=== PATIENT | female | born 1945 | race African-American/Black ===

== ENCOUNTER 2017-09-02 07:00 | Inpatient (IN) ==
[2017-09-02] MEDS ORDERED: ANCEF 1 GRAM IV PREMIX* 2 G/100 ML BAG IV ONE (07:20)
[2017-09-02] MEDS ORDERED: D5 LR 1000 ML 1,000 ML IV ONE (07:20)
[2017-09-02 07:56] VITALS: BMI 36.0
[2017-09-02] MEDS ORDERED: D5 LR 1000 ML 1,000 ML IV SCH (08:00)
[2017-09-02] MEDS: HYDROGEN PEROXIDE 3% ONE ×2 (08:06→12:35)
[2017-09-02] MEDS ORDERED: BACTROBAN TOPICAL OINT ONE ×2 (08:06→13:42)
[2017-09-02] MEDS ORDERED: FENTANYL INJ 250 mcg ONE (08:30)
[2017-09-02] MEDS ORDERED: VERSED ONE (09:03)
[2017-09-02] MEDS ORDERED: NORCURON INJ 10 MG VIAL ONE (09:03)
[2017-09-02] MEDS ORDERED: SUPRANE IN ONE (09:03)
[2017-09-02] MEDS ORDERED: ROBINUL ONE (09:03)
[2017-09-02] MEDS ORDERED: QUELICIN (OR ANECTINE) ONE (09:03)
[2017-09-02] MEDS ORDERED: DIPRIVAN VIAL ONE (09:03)
[2017-09-02] MEDS ORDERED: NEOSTIGMINE INJ ONE (09:03)
[2017-09-02] MEDS ORDERED: XYLOCAINE 2 % (PLAIN) ONE (09:03)
[2017-09-02] MEDS ORDERED: ZOFRAN INJ 4 MG VIAL ONE (09:03)
[2017-09-02] MEDS ORDERED: DILAUDID INJ ONE (10:00)
[2017-09-02] MEDS ORDERED: FENTANYL INJ 100 mcg ONE (10:01)
[2017-09-02] MEDS ORDERED: LR 1000 ML IV 1,000 ML IV ONE (10:29)
[2017-09-02] MEDS ORDERED: BENADRYL INJ 50 MG VIAL IVP PRN (12:56)
[2017-09-02] MEDS ORDERED: REGLAN INJ 10 MG VIAL IVP PRN (12:56)
[2017-09-02] MEDS ORDERED: PHENERGAN INJ 25 MG IVP PRN (12:56)
[2017-09-02] MEDS ORDERED: ZOFRAN INJ 4 MG VIAL IVP PRN ×2 (12:56→21:52)
[2017-09-02] MEDS ORDERED: DILAUDID INJ IVP PRN (12:56)
[2017-09-02] MEDS ORDERED: MORPHINE SULFATE PCA 30 MG IV PRN (13:03)
[2017-09-02] MEDS ORDERED: NAROPIN 0.75% EPI ONE (13:04)
[2017-09-02] MEDS: D5 1/2 NS 1000 ML 1,000 ML IV SCH ×2 (14:13→21:10)
--- NOTE | 2017-09-02 16:31 | RAD ---
Indication: Postop Exam: Right knee series Technique: AP and lateral views Findings: There are ill-defined prosthetic devices in the femoral condyle and tibial plateau which ar e held in place with extensive methylmethacrylate and appear in good position. There are postop dominguez es are seen along the patella posteriorly and there is subcutaneous air and edema in the soft tissues anteriorly and extending into the joint space. There are skin clips anteriorly. Impression: Status post total right knee replacement with postop changes as above. Reported By:
[2017-09-02] MEDS: VANCOMYCIN HCL 1 GM VIAL 1 G in D5W 250 ML IV 250 ML IV SCH (20:17)
[2017-09-02] MEDS: LOVENOX INJ 30 MG SYR SC SCH (20:17)
[2017-09-03] MEDS: D5 1/2 NS 1000 ML 1,000 ML IV SCH ×3 (00:15→18:07)
[2017-09-03 06:43] LABS: BASOPHILS % (AUTO) 0.4 % (0.2-1.0); HEMATOCRIT 32.2 % (36.0-47.0); HEMOGLOBIN 10.7 g/dL (12.0-16.0); LYMPHOCYTES # (AUTO) 1.6 X10^3/uL (1.3-2.9); LYMPHOCYTES % (AUTO) 16.6 % (21.0-51.0); MEAN CORPUSCULAR HGB CONC 33.2 g/dL (33.0-35.0); MEAN CORPUSCULAR VOLUME 78.3 fL (80.0-100.0); MEAN PLATELET VOLUME 9.4 fL (7.4-11.0); MONOCYTES # (AUTO) 0.9 x10^3/uL (0.3-0.8); MONOCYTES % (AUTO) 9.4 % (0.0-13.0); NEUTROPHILS # (AUTO) 7.1 x10^3/uL (2.2-4.8); NEUTROPHILS % (AUTO) 73.6 % (42.0-75.0); PLATELET COUNT 225 X10^3/uL (150.0-450.0); RED BLOOD COUNT 4.11 X10^6/uL (3.5-5.4); RED CELL DISTRIBUTION WIDTH 13.9 % (11.6-16.5); WHITE BLOOD COUNT 9.7 X10^3/uL (3.6-10.0)
[2017-09-03 07:00] LABS: BLOOD UREA NITROGEN 11 mg/dL (7-18); CALCIUM 9.1 mg/dL (8.5-10.1); CARBON DIOXIDE 28.9 mmol/L (21-32); CHLORIDE 99 mmol/L (98-107); COR NA(FOR HYPERGLY) 138 mmol/L (136-145); CREATININE 0.91 mg/dL (0.55-1.02); SODIUM 136 mmol/L (136-145); eGFR NON BLACK RACES > 60 (>60)
[2017-09-03] MEDS ORDERED: K-LYTE EFFERVESCENT PO PRN (08:15)
[2017-09-03] MEDS ORDERED: K-RIDER 10 MEQ/NS 100 ML 10 MEQ/100 ML BAG IV PRN (08:15)
[2017-09-03] MEDS ORDERED: POTASSIUM CHL 40 MEQ/NS 0.45% 500 ML IV PRN (08:15)
[2017-09-03] MEDS ORDERED: POTASSIUM CHL 60 MEQ/NS 0.45% 500 ML IV PRN (08:15)
[2017-09-03] MEDS ORDERED: POTASSIUM CHLORIDE LIQ 20 MEQ UDC PO PRN (08:15)
[2017-09-03] MEDS: VANCOMYCIN HCL 1 GM VIAL 1 G in D5W 250 ML IV 250 ML IV SCH ×2 (09:46→22:01)
--- NOTE | 2017-09-03 09:56 | RAD ---
History: Shortness of breath Study: Portable AP chest Comparison: August 29 Findings: The lungs remain grossly clear with limited inspiration compared to the prior exam. The hea rt size is prominent with a tortuous descending aorta. There is no edema or effusion demonstrated. Impression: No evidence for acute cardiopulmonary disease Reported By:
[2017-09-03] MEDS ORDERED: PATIENT'S HOME MEDICATION (Albuterol Sulfate [Proair Hfa] 1 INH) IN PRN (11:11)
[2017-09-03] MEDS ORDERED: BENZONATATE 200 MG PO PRN (11:11)
[2017-09-03] MEDS ORDERED: TESSALON PERLES PO PRN (11:26)
[2017-09-03] MEDS ORDERED: PROVENTIL NEB TX 0.083% 2.5MG/ 3ML NEB PRN (11:27)
[2017-09-03] MEDS: LASIX IVP SCH ×2 (11:35→21:02)
[2017-09-03] MEDS: NORVASC TAB 10 MG PO SCH (11:36)
[2017-09-03] MEDS ORDERED: MORPHINE SULFATE INJ 2 MG INJ IVP PRN (13:21)
--- NOTE | 2017-09-03 16:44 | DR.UPDATE ---
H&P Update History and Physical Update: History and Physical reviewed and patient examined. Changes noted: NO Yes with the following:Agree with H&P from Dr Escalera. Will place picc line Procedures (ALL) - Central Line Placement PCM.CLCO: written consent Time out performed: Yes Patient placed pm monitor/pulse ox: Yes prep: mask, gown, gloves, other Centrial line prep: chlorhexidine scrub Local anesthsia used: lidocane 1% Ultrasound used for placement: Yes (right basilic id'd.) Central line lumen ininserted: double (5Fr power port. trimmed length 43cm with 0cm exposed) Post procedure: good blood return, all ports aspirated, flushed,capped, sterile dressing applied Post procedure xray: tip oc catheter in good position, no pneumothorax seen Patient tolerated procedure: Yes
[2017-09-03] MEDS ORDERED: MAGNESIUM SULFATE 1 GRAM/100 mL PREMIX 1 G/100 ML BAG IV ONE (20:00)
[2017-09-03] MEDS: COLACE CAP 100 MG PO SCH (21:02)
[2017-09-03] MEDS: LOVENOX INJ 30 MG SYR SC SCH (21:02)
[2017-09-03] MEDS: MILK OF MAGNESIA PO SCH (21:13)
[2017-09-04] MEDS: D5 1/2 NS 1000 ML 1,000 ML IV SCH ×3 (02:08→18:05)
[2017-09-04 05:15] LABS: BASOPHILS % (AUTO) 0.1 % (0.2-1.0); HEMATOCRIT 31.3 % (36.0-47.0); HEMOGLOBIN 10.2 g/dL (12.0-16.0); LYMPHOCYTES # (AUTO) 1.5 X10^3/uL (1.3-2.9); LYMPHOCYTES % (AUTO) 11.1 % (21.0-51.0); MEAN CORPUSCULAR HEMOGLOBIN 25.5 pg (27.0-34.0); MEAN CORPUSCULAR HGB CONC 32.6 g/dL (33.0-35.0); MEAN CORPUSCULAR VOLUME 78.2 fL (80.0-100.0); MONOCYTES # (AUTO) 1.6 x10^3/uL (0.3-0.8); MONOCYTES % (AUTO) 11.6 % (0.0-13.0); NEUTROPHILS # (AUTO) 10.5 x10^3/uL (2.2-4.8); NEUTROPHILS % (AUTO) 77.2 % (42.0-75.0); PLATELET COUNT 192 X10^3/uL (150.0-450.0); RED CELL DISTRIBUTION WIDTH 13.9 % (11.6-16.5); WHITE BLOOD COUNT 13.6 X10^3/uL (3.6-10.0)
[2017-09-04 05:27] LABS: BLOOD UREA NITROGEN 10 mg/dL (7-18); CALCIUM 9.3 mg/dL (8.5-10.1); CARBON DIOXIDE 28.9 mmol/L (21-32); CHLORIDE 98 mmol/L (98-107); COR NA(FOR HYPERGLY) 135 mmol/L (136-145); CREATININE 0.93 mg/dL (0.55-1.02); MAGNESIUM 1.7 mg/dL (1.7-2.9); SODIUM 134 mmol/L (136-145); eGFR NON BLACK RACES > 60 (>60)
[2017-09-04 05:55] LABS: HYPOCHROMASIA 1+; PLATELET MORPHOLOGY COMMENT NORMAL (NORMAL)
[2017-09-04] MEDS: PERCOCET TAB 5/325 MG PO PRN ×2 (07:09→12:20)
--- NOTE | 2017-09-04 08:23 | PCM.PROG ---
Progress Note - Progress Note for Day of Date: 09/03/17 - Subjective Subjective: IS DAY 1 STATUS POST RIGHT KNEE REVISION. TODAY, SHE IS ALERT AND ORIENTED, LYING IN BED ON MORNING ROUNDS. SHE IS NOTED WITH COMPLAINTS OF RIGHT KNEE PAIN AND SHORTNESS OF BREATH. ON EXAMINATION, HEART IS REGULAR IN RATE AND RHYTHM. BILATERAL LUNGS ARE NOTED WITH DIMINISHED LUNG SOUNDS THROUGHOUT. ABDOMEN IS ROUND, SOFT, AND NON-TENDER WITH NORMAL BOWEL SOUNDS NOTED IN ALL QUADRANTS. RIGHT KNEE IS NOTED WITH A SURGICAL DRESSING, DRY AND INTACT. NO SIGNS OR SX INFECTION NOTED TO SITE. HER VITALS THIS MORNING ARE 98.3-64-17-100%-185/78. LABS WERE OBTAINED. ABNORMAL LAB VALUES INCLUDE THE FOLLOWING: HGB 10.7, HCT 32.2, POTASSIUM 3.0, GLUCOSE 166, MAGNESIUM 1.5. TODAY , WE WILL ORDER A CHEST XRAY AND ADMINISTER LASIX 20MG IV BID. WE WILL REPLACE HER MAGNESIUM AND POTASSIUM WITH THE PROTOCOL. PHYSICAL THERAPY WILL CONTINUE TO WORK WITH PATIENT. OTHERWISE, WE WILL FOLLOW UP WITH AM LABS AND CONTINUE TO MONITOR PATIENT. - Past Medical Family Social History Past Med/Fam/Surg Hx: No changes since H&P Allergies: Allergies No Known Drug Allergies Allergy (Verified 09/02/17 07:29) - Review of Systems ROS: No change since H&P - Vital Signs and I&O's Vital Signs: Temperature 98.2 F Pulse Rate [Right Brachial] 75 Pulse Rate [Left Brachial] 78 Pulse Rate [Apical] 64 Pulse Rate 62 Respiratory Rate 18 Blood Pressure [Left Arm] 160/71 Blood Pressure [Right Arm] 141/67 Blood Pressure 158/69 O2 Sat by Pulse Oximetry 96 Intake and Output: Intake & Output 09/01/17 09/02/17 09/03/17 09/04/17 11:59 11:59 11:59 11:59 Intake Total 50 / 50 4187 / 4187 2910 / 2910 Output Total 970 / 970 4350 / 4350 Balance 50 / 50 3217 / 3217 -1440 / -1440 - Physical Exam Oriented: Normal Eyes: Normal Ear: Normal Nose: Normal Throat: Normal Respiratory: Generalized, Diminished Cardiovascular: Normal. negative: S3, S4, Murmur : Normal Auscultation: Bowel Sounds: Normal Palpation: Normal Tenderness: Normal Skin: Tender, Wound (SURGICAL WOUND RIGHT KNEE ) Musculoskeletal: Right, Knee, Tender Psychiatric: Normal Mood Description: Calm Affect: Normal Speech Pattern: Clear, Appropriate - Laboratory and Diagnostics Result Diagrams: 09/04/17 04:20 09/04/17 04:20 Labs: Laboratory WBC 13.6 X10^3/uL (3.6-10.0) H 09/04/17 04:20 RBC 4.00 X10^6/uL (3.5-5.4) 09/04/17 04:20 Hgb 10.2 g/dL (12.0-16.0) L 09/04/17 04:20 Hct 31.3 % (36.0-47.0) L 09/04/17 04:20 MCV 78.2 fL (80.0-100.0) L 09/04/17 04:20 MCH 25.5 pg (27.0-34.0) L 09/04/17 04:20 MCHC 32.6 g/dL (33.0-35.0) L 09/04/17 04:20 RDW 13.9 % (11.6-16.5) 09/04/17 04:20 Plt Count 192 X10^3/uL (150.0-450.0) 09/04/17 04:20 Plt Count Comment Adequate (ADEQUATE) 09/04/17 04:20 MPV 10.0 fL (7.4-11.0) 09/04/17 04:20 Neut % (Auto) 77.2 % (42.0-75.0) H 09/04/17 04:20 Lymph % (Auto) 11.1 % (21.0-51.0) L 09/04/17 04:20 [place] % (Auto) 11.6 % (0.0-13.0) 09/04/17 04:20 Eos % (Auto) 0.0 % (0.9-2.9) L 09/04/17 04:20 Baso % (Auto) 0.1 % (0.2-1.0) L 09/04/17 04:20 Neut # (Auto) 10.5 x10^3/uL (2.2-4.8) H 09/04/17 04:20 Lymph # (Auto) 1.5 X10^3/uL (1.3-2.9) 09/04/17 04:20 [place] # (Auto) 1.6 x10^3/uL (0.3-0.8) H 09/04/17 04:20 Eos # (Auto) 0.0 x10^3/uL (0.0-0.2) 09/04/17 04:20 Baso # (Auto) 0.0 X10^3/uL (0.0-0.1) 09/04/17 04:20 Absolute Nucleated RBC 0.0 /100WBC 09/04/17 04:20 Plt Morphology Comment Normal (NORMAL) 09/04/17 04:20 RBC Morphology Abnormal (NORMAL) A 09/04/17 04:20 Hypochromasia 1+ A 09/04/17 04:20 Sodium 134 mmol/L (136-145) L 09/04/17 04:20 Corrected Sodium 135 mmol/L (136-145) L 09/04/17 04:20 Potassium 3.5 mmol/L (3.5-5.1) 09/04/17 04:20 Chloride 98 mmol/L (98-107) 09/04/17 04:20 Carbon Dioxide 28.9 mmol/L (21-32) 09/04/17 04:20 BUN 10 mg/dL (7-18) 09/04/17 04:20 Creatinine 0.93 mg/dL (0.55-1.02) 09/04/17 04:20 Est GFR (MDRD) Af Amer > 60 (>60) 09/04/17 04:20 Est GFR (MDRD) Non-Af > 60 (>60) 09/04/17 04:20 Glucose 152 mg/dL (65-99) H 09/04/17 04:20 Calcium 9.3 mg/dL (8.5-10.1) 09/04/17 04:20 Magnesium 1.7 mg/dL (1.7-2.9) 09/04/17 04:20 Tissue Pathology To follow 09/02/17 12:50 - Plan (1) Status post revision of total replacement of right knee Status: Acute Plan: PHYSICAL THERAPY, WOUND CARE, PAIN MANAGEMENT, CONTINUE TO MONITOR (2) Shortness of breath Status: Acute Plan: LASIX 20MG IV BID, CHEST XRAY, SUPPLEMENTAL OXYGEN, CONTINUE TO MONITOR (3) Hypertension Status: Acute Qualifiers: Hypertension type: essential hypertension Qualified Code(s): I10 - Essential (primary) hypertension Plan: CONTINUE NORVASC, CONTINUE HCTZ, CONTINUE TO MONITOR
[2017-09-04] MEDS: HYDROCHLOROTHIAZIDE 25 MG TAB PO SCH (08:29)
[2017-09-04] MEDS: MILK OF MAGNESIA PO SCH ×2 (08:30→20:51)
[2017-09-04] MEDS: NORVASC TAB 10 MG PO SCH (08:30)
[2017-09-04] MEDS ORDERED: PHARMACY COMMENT IV SCH (08:45)
[2017-09-04 08:51] LABS: CREATININE 1.04 mg/dL (0.55-1.02); VANCOMYCIN,TROUGH 12.8 ug/mL (15-20)
[2017-09-04] MEDS: VANCOMYCIN HCL 1 GM VIAL 1 G in D5W 250 ML IV 250 ML IV SCH ×2 (09:27→20:52)
[2017-09-04] MEDS ORDERED: DULCOLAX SUPPOSITORY 10 MG RECTAL SCH (19:00)
[2017-09-04] MEDS: COLACE CAP 100 MG PO SCH (20:51)
[2017-09-04] MEDS: LOVENOX INJ 30 MG SYR SC SCH (20:52)
[2017-09-05] MEDS: D5 1/2 NS 1000 ML 1,000 ML IV SCH ×2 (01:41→10:38)
[2017-09-05 05:22] LABS: BASOPHILS % (AUTO) 0.1 % (0.2-1.0); EOSINOPHILS % (AUTO) 0.3 % (0.9-2.9); HEMOGLOBIN 9.6 g/dL (12.0-16.0); LYMPHOCYTES # (AUTO) 1.7 X10^3/uL (1.3-2.9); LYMPHOCYTES % (AUTO) 13.6 % (21.0-51.0); MEAN CORPUSCULAR HEMOGLOBIN 25.9 pg (27.0-34.0); MEAN CORPUSCULAR VOLUME 78.3 fL (80.0-100.0); MEAN PLATELET VOLUME 9.5 fL (7.4-11.0); MONOCYTES # (AUTO) 1.2 x10^3/uL (0.3-0.8); MONOCYTES % (AUTO) 9.4 % (0.0-13.0); NEUTROPHILS # (AUTO) 9.5 x10^3/uL (2.2-4.8); NEUTROPHILS % (AUTO) 76.6 % (42.0-75.0); PLATELET COUNT 200 X10^3/uL (150.0-450.0); RED CELL DISTRIBUTION WIDTH 13.9 % (11.6-16.5); WHITE BLOOD COUNT 12.4 X10^3/uL (3.6-10.0)
[2017-09-05 05:29] LABS: BLOOD UREA NITROGEN 14 mg/dL (7-18); CALCIUM 9.3 mg/dL (8.5-10.1); CARBON DIOXIDE 32.5 mmol/L (21-32); CHLORIDE 96 mmol/L (98-107); COR NA(FOR HYPERGLY) 135 mmol/L (136-145); CREATININE 0.98 mg/dL (0.55-1.02); SODIUM 134 mmol/L (136-145); eGFR NON BLACK RACES 59 (>60)
[2017-09-05 06:09] LABS: ANISOCYTOSIS 1+; HYPOCHROMASIA 1+; MICROCYTOSIS SLIGHT; PLATELET MORPHOLOGY COMMENT NORMAL (NORMAL)
--- NOTE | 2017-09-05 08:15 | PCM.PROG ---
Progress Note - Progress Note for Day of Date: 09/04/17 - Subjective Subjective: IS DAY 1 STATUS POST RIGHT KNEE REVISION. TODAY, SHE IS ALERT AND ORIENTED, LYING IN BED ON MORNING ROUNDS. SHE CONTINUES WITH COMPLAINTS OF RIGHT KNEE PAIN. ON EXAMINATION, HEART IS REGULAR IN RATE AND RHYTHM. BILATERAL LUNGS ARE NOTED WITH DIMINISHED LUNG SOUNDS THROUGHOUT. ABDOMEN IS ROUND, SOFT, AND NON-TENDER WITH NORMAL BOWEL SOUNDS NOTED IN ALL QUADRANTS. RIGHT KNEE IS NOTED WITH A SURGICAL 99.8-78-16-100%-160/71. SHE DID REACH A TEMPERATURE OF 100.2 AT MIDNIGHT. LABS WERE OBTAINED. ABNORMAL LAB VALUES INCLUDE THE FOLLOWING: WBC 13.6, HGB 10.2, HCT 31.3, SODIUM 134, GLUCOSE 152. A PICC LINE WAS PLACED YESTERDAY FOR AN EXTENDED COURSE OF ANTIBIOTICS AT HOME. PHYSICAL THERAPY WILL CONTINUE TO WORK WITH PATIENT. OTHERWISE, WE WILL FOLLOW UP WITH AM LABS AND CONTINUE TO MONITOR PATIENT. - Past Medical Family Social History Past Med/Fam/Surg Hx: No changes since H&P Allergies: Allergies No Known Drug Allergies Allergy (Verified 09/02/17 07:29) - Review of Systems ROS: No change since H&P - Vital Signs and I&O's Vital Signs: Temperature 99.8 F Pulse Rate [Right Brachial] 80 Pulse Rate [Left Brachial] 78 Pulse Rate [Apical] 64 Pulse Rate 62 Respiratory Rate 20 Blood Pressure [Left Arm] 131/63 Blood Pressure [Right Arm] 141/67 Blood Pressure 158/69 O2 Sat by Pulse Oximetry 97 Intake and Output: Intake & Output 09/02/17 09/03/17 09/04/17 09/05/17 11:59 11:59 11:59 11:59 Intake Total 50 / 50 4187 / 4187 2910 / 2910 2740 / 2740 Output Total 970 / 970 4350 / 4350 1450 / 1450 Balance 50 / 50 3217 / 3217 -1440 / -1440 1290 / 1290 - Physical Exam Oriented: Normal Eyes: Normal Ear: Normal Nose: Normal Throat: Normal Respiratory: Generalized, Diminished Cardiovascular: Normal. negative: S3, S4, Murmur : Normal Auscultation: Bowel Sounds: Normal Palpation: Normal Tenderness: Normal Skin: Tender, Wound (SURGICAL WOUND RIGHT KNEE ) Musculoskeletal: Right, Knee, Tender Psychiatric: Normal Mood Description: Calm Affect: Normal Speech Pattern: Clear, Appropriate - Laboratory and Diagnostics Result Diagrams: 09/05/17 04:23 09/05/17 04:23 Labs: Laboratory WBC 12.4 X10^3/uL (3.6-10.0) H 09/05/17 04:23 RBC 3.70 X10^6/uL (3.5-5.4) 09/05/17 04:23 Hgb 9.6 g/dL (12.0-16.0) L 09/05/17 04:23 Hct 29.0 % (36.0-47.0) L 09/05/17 04:23 MCV 78.3 fL (80.0-100.0) L 09/05/17 04:23 MCH 25.9 pg (27.0-34.0) L 09/05/17 04:23 MCHC 33.0 g/dL (33.0-35.0) 09/05/17 04:23 RDW 13.9 % (11.6-16.5) 09/05/17 04:23 Plt Count 200 X10^3/uL (150.0-450.0) 09/05/17 04:23 Plt Count Comment Adequate (ADEQUATE) 09/05/17 04:23 MPV 9.5 fL (7.4-11.0) 09/05/17 04:23 Neut % (Auto) 76.6 % (42.0-75.0) H 09/05/17 04:23 Lymph % (Auto) 13.6 % (21.0-51.0) L 09/05/17 04:23 [place] % (Auto) 9.4 % (0.0-13.0) 09/05/17 04:23 Eos % (Auto) 0.3 % (0.9-2.9) L 09/05/17 04:23 Baso % (Auto) 0.1 % (0.2-1.0) L 09/05/17 04:23 Neut # (Auto) 9.5 x10^3/uL (2.2-4.8) H 09/05/17 04:23 Lymph # (Auto) 1.7 X10^3/uL (1.3-2.9) 09/05/17 04:23 [place] # (Auto) 1.2 x10^3/uL (0.3-0.8) H 09/05/17 04:23 Eos # (Auto) 0.0 x10^3/uL (0.0-0.2) 09/05/17 04:23 Baso # (Auto) 0.0 X10^3/uL (0.0-0.1) 09/05/17 04:23 Absolute Nucleated RBC 0.0 /100WBC 09/05/17 04:23 Plt Morphology Comment Normal (NORMAL) 09/05/17 04:23 RBC Morphology Abnormal (NORMAL) A 09/05/17 04:23 Hypochromasia 1+ A 09/05/17 04:23 Anisocytosis 1+ A 09/05/17 04:23 Microcytosis Slight A 09/05/17 04:23 Macrocytosis Slight A 09/05/17 04:23 Sodium 134 mmol/L (136-145) L 09/05/17 04:23 Corrected Sodium 135 mmol/L (136-145) L 09/05/17 04:23 Potassium 3.1 mmol/L (3.5-5.1) L 09/05/17 04:23 Chloride 96 mmol/L (98-107) L 09/05/17 04:23 Carbon Dioxide 32.5 mmol/L (21-32) H 09/05/17 04:23 BUN 14 mg/dL (7-18) 09/05/17 04:23 Creatinine 0.98 mg/dL (0.55-1.02) 09/05/17 04:23 Est GFR (MDRD) Af Amer > 60 (>60) 09/05/17 04:23 Est GFR (MDRD) Non-Af 59 (>60) 09/05/17 04:23 Glucose 140 mg/dL (65-99) H 09/05/17 04:23 Calcium 9.3 mg/dL (8.5-10.1) 09/05/17 04:23 Magnesium 1.7 mg/dL (1.7-2.9) 09/04/17 04:20 Vancomycin Trough 12.8 ug/mL (15-20) L 09/04/17 08:10 Tissue Pathology To follow 09/02/17 12:50 - Plan (1) Status post revision of total replacement of right knee Status: Acute Plan: PHYSICAL THERAPY, WOUND CARE, PAIN MANAGEMENT, CONTINUE TO MONITOR (2) Shortness of breath Status: Acute Plan: LASIX 20MG IV BID, CHEST XRAY, SUPPLEMENTAL OXYGEN, CONTINUE TO MONITOR (3) Hypertension Status: Acute Qualifiers: Hypertension type: essential hypertension Qualified Code(s): I10 - Essential (primary) hypertension Plan: CONTINUE NORVASC, CONTINUE HCTZ, CONTINUE TO MONITOR
[2017-09-05] MEDS: PERCOCET TAB 5/325 MG PO PRN (08:26)
[2017-09-05] MEDS: HYDROCHLOROTHIAZIDE 25 MG TAB PO SCH (08:36)
[2017-09-05] MEDS: MILK OF MAGNESIA PO SCH (08:37)
[2017-09-05] MEDS: VANCOMYCIN HCL 1 GM VIAL 1 G in D5W 250 ML IV 250 ML IV SCH (08:37)
[2017-09-05] MEDS: NORVASC TAB 10 MG PO SCH (08:37)
--- NOTE | 2017-09-05 09:36 | PCM.PROG ---
Progress Note - Progress Note for Day of Date: 09/04/17 - Subjective Subjective: she is postoperative day 2 after a RIGHT knee surgerypatient has an infected RIGHT total knee arthroplasty which was explantedand a spacer was placed. PICC line was placed for chronic IV antibiotic medication. Currently on VANCOMYCIN. Weightbearing status nonweightbearing. Doing fine as regard to her medical aspect. RIGHT knee surgical incision clean and dry. Plan-she will need long-term inpatient rehabilitation. Have discussed with the nurse discharge planner/case management to make appropriate arguments for her. Regular dressing changes at every clinic interval with the Kyra. Infectious diseases consult with Dr. MONTEMAYOR at the earliest. Suture removal at 3 weeks. Follow-up in my office with x-rays at 4 weeks. - Past Medical Family Social History Past Med/Fam/Surg Hx: No changes since H&P Allergies: Allergies No Known Drug Allergies Allergy (Verified 09/02/17 07:29) - Review of Systems ROS: No change since H&P - Vital Signs and I&O's Vital Signs: Temperature 98.9 F Pulse Rate [Right Brachial] 76 Pulse Rate [Left Brachial] 78 Pulse Rate [Apical] 64 Pulse Rate 62 Respiratory Rate 20 Blood Pressure [Left Arm] 122/59 Blood Pressure [Right Arm] 141/67 Blood Pressure 158/69 O2 Sat by Pulse Oximetry 98 Intake and Output: Intake & Output 09/02/17 09/03/17 09/04/17 09/05/17 11:59 11:59 11:59 11:59 Intake Total 50 / 50 4187 / 4187 2910 / 2910 2740 / 2740 Output Total 970 / 970 4350 / 4350 1450 / 1450 Balance 50 / 50 3217 / 3217 -1440 / -1440 1290 / 1290 - Physical Exam Oriented: Normal Eyes: Normal Ear: Normal Nose: Normal Throat: Normal Respiratory: Generalized, Diminished Cardiovascular: Normal. negative: S3, S4, Murmur : Normal Auscultation: Bowel Sounds: Normal Tenderness: Normal Skin: Tender, Wound (SURGICAL WOUND RIGHT KNEE ) Musculoskeletal: Right, Knee, Tender Psychiatric: Normal Mood Description: Calm Affect: Normal Speech Pattern: Clear, Appropriate - Laboratory and Diagnostics Result Diagrams: 09/05/17 04:23 09/05/17 04:23 Labs: Laboratory WBC 12.4 X10^3/uL (3.6-10.0) H 09/05/17 04:23 RBC 3.70 X10^6/uL (3.5-5.4) 09/05/17 04:23 Hgb 9.6 g/dL (12.0-16.0) L 09/05/17 04:23 Hct 29.0 % (36.0-47.0) L 09/05/17 04:23 MCV 78.3 fL (80.0-100.0) L 09/05/17 04:23 MCH 25.9 pg (27.0-34.0) L 09/05/17 04:23 MCHC 33.0 g/dL (33.0-35.0) 09/05/17 04:23 RDW 13.9 % (11.6-16.5) 09/05/17 04:23 Plt Count 200 X10^3/uL (150.0-450.0) 09/05/17 04:23 Plt Count Comment Adequate (ADEQUATE) 09/05/17 04:23 MPV 9.5 fL (7.4-11.0) 09/05/17 04:23 Neut % (Auto) 76.6 % (42.0-75.0) H 09/05/17 04:23 Lymph % (Auto) 13.6 % (21.0-51.0) L 09/05/17 04:23 [place] % (Auto) 9.4 % (0.0-13.0) 09/05/17 04:23 Eos % (Auto) 0.3 % (0.9-2.9) L 09/05/17 04:23 Baso % (Auto) 0.1 % (0.2-1.0) L 09/05/17 04:23 Neut # (Auto) 9.5 x10^3/uL (2.2-4.8) H 09/05/17 04:23 Lymph # (Auto) 1.7 X10^3/uL (1.3-2.9) 09/05/17 04:23 [place] # (Auto) 1.2 x10^3/uL (0.3-0.8) H 09/05/17 04:23 Eos # (Auto) 0.0 x10^3/uL (0.0-0.2) 09/05/17 04:23 Baso # (Auto) 0.0 X10^3/uL (0.0-0.1) 09/05/17 04:23 Absolute Nucleated RBC 0.0 /100WBC 09/05/17 04:23 Plt Morphology Comment Normal (NORMAL) 09/05/17 04:23 RBC Morphology Abnormal (NORMAL) A 09/05/17 04:23 Hypochromasia 1+ A 09/05/17 04:23 Anisocytosis 1+ A 09/05/17 04:23 Microcytosis Slight A 09/05/17 04:23 Macrocytosis Slight A 09/05/17 04:23 Sodium 134 mmol/L (136-145) L 09/05/17 04:23 Corrected Sodium 135 mmol/L (136-145) L 09/05/17 04:23 Potassium 3.1 mmol/L (3.5-5.1) L 09/05/17 04:23 Chloride 96 mmol/L (98-107) L 09/05/17 04:23 Carbon Dioxide 32.5 mmol/L (21-32) H 09/05/17 04:23 BUN 14 mg/dL (7-18) 09/05/17 04:23 Creatinine 0.98 mg/dL (0.55-1.02) 09/05/17 04:23 Est GFR (MDRD) Af Amer > 60 (>60) 09/05/17 04:23 Est GFR (MDRD) Non-Af 59 (>60) 09/05/17 04:23 Glucose 140 mg/dL (65-99) H 09/05/17 04:23 Calcium 9.3 mg/dL (8.5-10.1) 09/05/17 04:23 Magnesium 1.7 mg/dL (1.7-2.9) 09/04/17 04:20 Vancomycin Trough 12.8 ug/mL (15-20) L 09/04/17 08:10 Tissue Pathology To follow 09/02/17 12:50 - Plan (1) Status post revision of total replacement of right knee Status: Acute Plan: infectious diseases consult, long-term rehabilitation, pain management, physical therapy
--- NOTE | 2017-09-05 10:00 | OR.GENERIC ---
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 Procedure-removal of RIGHT total knee arthroplasty and spacer placement. Indication-patient 72-year-old female presented to my office with RIGHT knee pain. She has had RIGHT total knee arthroplasty done 2 years ago at [facility]. She has been having RIGHT knee pain since the surgery. Since Thanksgiving she had noticed increasing pain in the RIGHT knee. No instability or locking episodes were noted. Rest pain was noted. The RIGHT knee was aspirated and aspirated cloudy synovitis fluid which was sent to the pathology and it grew staph epidermidisend of sensitive to VANCOMYCIN. The various options were discussed with her. Patient wanted to proceed with surgical intervention. The initial plan was to do a polyethylene exchange and chronic IV antibiotic with PICC line. The risk and benefits were discussed with her. It is also brought her notice that in case any of the implant is used are not well fixed then we might have to proceed with explantation of all the implants and the spacer implantation. She understood and verbalized the same. Preoperative-patient was met in the preoperative holding area. Consent was obtained. Limb was marked. She got an abductor canal block. She also was met by the vice president and portfolio manager. Complications including but not limited to infection, osteomyelitis, neurovascular damage, prosthetic fracture, continued pain, stiffness, need for further procedures, amputation, knee fusion with feel the complications which were discussed with her. She understood and verbalized the same. Patient consented and wanted to proceed with the per procedure.antibiotic was withheld as it was an infected revision case. Procedure-patient was brought to the operating room. Patient was placed supine on the operating table. A tourniquet was applied but was not inflated. Patient was put under general anesthesia and successfully endotracheal intubation was done. The RIGHT limb was prepped and draped. tourniquet inflated. A midline incision was made and the skin scar was divided. Dissection taken down to the quadriceps. Medial and lateral flaps were elevated. Medial arthrotomy was completed. Cloudy and a fibrinous synovitis fluid was noted. Severe synovitis was noted. Intraoperative cultures were obtained. Medial soft tissue was elevated off the proximal tibia. The polyethylene was extracted with an osteotome. Synovectomy was completed on the anterior as well as medial and lateral aspect. Inspection and palpation showed that the tibial component was loose. the tibial component was extracted without much difficulty. The cement mantle both extra and intramedullary was removed in toto with a combination of osteotome, rongeurs, curettes and cement extractors. The attention was directed to femoral component and this time. It was fairly well fixed. The component was removed without much bone loss using a combination of the rigid and flexible osteotomes as well as reciprocating slots. The patella component was fairly well fixed and had to be removed with an physician saw. The bone plugs were drilled and the cement as well as the plastic lugs were removed from the patella. Thorough irrigation was done. Bone loss was assessed. It was minimal on the tibial aspect. It is also very minimal on the femoral side. About 9 L of normal saline with BACITRACIN was used. A ready-made spacer was available and it was sized and it was implanted into the femur as well as tibia with the bone cement. The arthrotomy was closed with interrupted Vicryl sutures. The subcutaneous distal shoes was so sutured with interrupted Vicryl sutures. The skin was stapled. Tourniquet was deflated. Sterile dressing was applied. Knee immobilizer was applied. Postoperative-patient was woken up from the surgery. Patient was successfully extubated. Patient is vital signs were stable. The family was updated. Postoperative images have been obtained. No complications have been noted. Postoperative plan will involve a PICC line insertion with the 6 weeks of IV antibiotics. An infectious diseases consultation. We will keep her nonweightbearing till we proceed with definitive revision surgery.
[2017-09-05 16:07] VITALS: BP 152/67
--- NOTE | 2017-09-19 22:04 | DR.CARTERD ---
- Discharge Summary for: Discharge Summary for Date of:: 09/05/17 - Admission Date Date of Admission: 09/02/17 - Admission Diagnoses Admission Diagnosis: (1) Status post revision of total replacement of right knee (2) Shortness of breath (3) Hypertension - Discharge Date Discharge Date: 09/05/17 - Discharge Diagnoses Discharge Diagnosis: (1) Status post revision of total replacement of right knee (2) Shortness of breath (3) Hypertension - Hospital Course Hospital Course: Ms. Li presented to the hospital for a scheduled surgery. The patient had a right total knee replacement done a few years ago. She reported that she had pain since the time of surgery. The patient had noticed increased pain for the last six months. The patient denied any instability or locking. Examination and x-rays were done. The knee was aspirated and it aspirated shaila serosanguinous discharge which was cloudy. It was sent for cultures and came back positive for infection. Treatment discussions were done with the patient. The patient reported that she wanted to proceed with surgery. Various surgical options were discussed with her. The patient reported that she was 72 and had very limited mobility, she did not want to go through the two -stage/three-stage revision procedure. The patient preferred a single stage procedure. Poly exchange was discussed with her with chronic antibiotic medication with PICC line, patient opted for this. Dr. Escalera took patient to OR for procedure and patient tolerated well. Medical History: Hypertension, Osteoarthritis Medications: D5 LR @125ml/hr, Morphine ANNEALING FURNACE TENDER 2mg IV Q10min PRN, Lovenox 30mg SC HS , Vancomycin 1gm IV Q12hr, Zofran 4mg IV Q6hr PRN. Abnormal Pre-op Labs: Hgb 11.1, Hct 33.7, MCV 78.4, MCH 25.8, MCHC 32.9, ESR 48, Potassium 3.4, ALT 10, CRP 15.90, A/G Ratio 0.8. Urinalysis Pre-op: Leuk Est 1+, RBC 0-2, WBC 0-2, Mucus Few. Chest X-Ray: No acute cardiopulmonary disease. Knee X-Ray: Status post total right knee replacement. EKG: Sinus Rhythm, rate=58. On day two, she reported right knee pain and shortness of breath. On examination , heart was regular in rate and rhythm; bilateral lungs were noted with diminished lung sounds throughout. Abdomen was round, soft, and non-tender with normal bowel sounds noted in all quadrants. Right knee was noted with a surgical dressing, dry, and intact. No signs or symptoms of infection noted to site. Vitals were: 98.3-64-17-100%-185/78. Abnormal labs values included: HGB 10.7, HCT 32.2, POTASSIUM 3.0, GLUCOSE 166, MAGNESIUM 1.5. We started Lasix 20mg IV bid, along with Magnesium and Potassium Protocols. Physical therapy continued to work with patient. On day three, patient continued with right knee pain. Right knee surgical dressing was dry and intact. No signs or symptoms of infection noted. Vitals were: 99.8-78-16-100%-160/71. Patient had fever of 100.2 the night prior. Abnormal labs included the following: WBC 13.6, HGB 10.2, HCT 31.3, SODIUM 134, GLUCOSE 152. A PICC line was placed for an extended course of antibiotics at home. She continued on IV Vancomycin. Dr. Escalera continued to follow post op. Day four, patient was doing well. She reported she felt well. Dr. Escalera plannd for patient to follow up with infectious diseases consult with Dr. Bashir at the earliest. Right knee surgical dressing dry and intact. Labs wnl. Vital signs stable. Dr. Escalera released patient for discharge. We planned for discharge. Instructions for medications and follow up were discussed with patient and family, both voiced understanding. Patient discharged to [facility] for further physical therapy. - Discharge Medications Discharge Medications: Home Medication List albuterol sulfate [ProAir HFA] 1 inh INHALATION PRN PRN 09/02/17 [History] amlodipine 10 mg PO DAILY 09/02/17 [History] benzonatate 200 mg PO TID PRN 09/02/17 [History] hydrochlorothiazide 25 mg PO DAILY 09/02/17 [History] metoprolol succinate [Toprol XL] 200 mg PO DAILY 09/02/17 [History] enoxaparin [Lovenox] 30 mg SUB-Q DAILY #16 unit 09/05/17 [Rx] vancomycin in dextrose 5 % 1 g IV Q12H #250 ml 09/05/17 [Rx] Prescriptions: enoxaparin [Lovenox] Joselito Magaña vancomycin in dextrose 5 % Joselito Magaña - Discharge Disposition Discharge Disposition: Patient is to follow up with Dr. Bashir as soon as appointment is available; Dr. Escalera in four weeks; follow up with Dr. Li PCP in one week.
== END 2017-09-05 17:50 | DRG 465 ==
LOC: OBS 07:00 → ICU 07:24 → MED/SURG 09-03 17:23
PROVIDERS: ADMIT Orthopaedic Surgery; ATTEND Internal Medicine
DX: M65.161 Other infective (teno)synovitis, right knee; R26.89 Other abnormalities of gait and mobility; R06.02 Shortness of breath; E11.65 Type 2 diabetes mellitus with hyperglycemia; M25.561 Pain in right knee; I10 Essential (primary) hypertension; J45.998 Other asthma
CPT/HCPCS: 36415; 36569; 64447; 71010; 71045; 73560; 80048; 80202; 82565; 83735; 84132; 85025; 88304; 97110; 97112; 97163; 97167; 97530; 97535; 99100; A4216; A4222; J0330; J0690; J1170; J1650; J1940; J2250; J2271; J2405; J2704; J2710; J2795; J3010; J3370; J3475; J3480; J3490; J7060; J7120; J7121; J8499; S5010